=== PATIENT | male | born 2000 | race Caucasian/White ===

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

== ENCOUNTER 2020-07-11 16:15 | Outpatient (CLI) | payer BC | END 2020-07-11 16:16 | disposition home or self-care (01) | LOC: COV 16:15 | PROVIDERS: ATTEND Family Medicine | DX: Z20.828 Contact with and (suspected) exposure to other viral communicable diseases (principal) ==

== ENCOUNTER 2020-07-19 16:43 | Outpatient (CLI) | payer BC | END 2020-07-19 16:44 | disposition home or self-care (01) | LOC: COV 16:43 | PROVIDERS: ATTEND Family Medicine | DX: Z20.828 Contact with and (suspected) exposure to other viral communicable diseases (principal) ==

== ENCOUNTER 2020-10-19 08:00 | Outpatient (CLI) | payer BC | END 2020-10-19 23:59 | disposition home or self-care (01) | LOC: LAB.N 08:00 | PROVIDERS: ATTEND Physician Assistant Medical | DX: J02.9 Acute pharyngitis, unspecified (principal); Z20.822 Contact with and (suspected) exposure to COVID-19 | CPT/HCPCS: 36415; 86308; 87275; 87276 ==

== ENCOUNTER 2021-02-19 11:45 | Outpatient (CLI) | payer OTHER, BC | END 2021-02-19 11:46 | disposition critical access hospital (66) | LOC: EMS 11:45 | DX: S00.81XA Abrasion of other part of head, initial encounter (principal); S70.02XA Contusion of left hip, initial encounter; W17.89XA Other fall from one level to another, initial encounter; Y93.89 Activity, other specified | CPT/HCPCS: A0425; A0427 ==

== ENCOUNTER 2021-02-19 12:01 | Inpatient (IN) | payer OTHER, BC ==
[2021-02-19] MEDS ORDERED: IOVERSOL 320 100 ML VIAL IVP ONE (12:29)
[2021-02-19 12:42] LABS: BASOPHILS % (AUTO) 0.2 %; EOSINOPHILS # (AUTO) 0.5 10^3/uL (0.0-0.7); EOSINOPHILS % (AUTO) 2.7 %; HCT - HEMATOCRIT 44.8 % (42.0-52.0); HGB - HEMOGLOBIN 15.4 g/dL (14.0-18.0); LYMPHOCYTES # (AUTO) 0.8 10^3/uL (1.5-3.5); LYMPHOCYTES % (AUTO) 4.4 %; MEAN CORPUSCULAR HEMOGLOBIN 32.4 pg (27.0-31.0); MEAN CORPUSCULAR HGB CONC 34.4 g/dL (32.0-36.0); MEAN CORPUSCULAR VOLUME 94.3 fL (80.0-94.0); MEAN PLATELET VOLUME 10.2 fL (7.4-11.4); MONOCYTES # (AUTO) 1.1 10^3/uL (0.0-1.0); MONOCYTES % (AUTO) 6.6 %; NEUTROPHILS # (AUTO) 14.4 10^3/uL (1.5-6.6); NEUTROPHILS % (AUTO) 85.2 %; PLT - PLATELET COUNT 170 10^3/uL (130-450); RED BLOOD COUNT 4.75 10^6/uL (4.70-6.10); RED CELL DISTRIBUTION WIDTH 12.4 % (12.0-15.0); WHITE BLOOD COUNT 16.9 x10^3/uL (4.8-10.8)
--- NOTE | 2021-02-19 12:50 | XRAY Report ---
PROCEDURE: Wrist 4 View LT INDICATIONS: fall, wrist pain TECHNIQUE: 4 views of the wrist were acquired. COMPARISON: None FINDINGS: Bones: No fractures or dislocations. No suspicious bony lesions. Scaphoid view: No scaphoid fractures are seen. Soft tissues: No suspicious soft tissue calcifications. IMPRESSION: No displaced fractures are seen on these plain films. If there is snuffbox tenderness (or other clinical concern for a fracture not seen on these images) p lease consider a dedicated CT study or a short-term follow-up plain film series, following splinting. Reviewed by: Mahin Horner MD on 02/19/2021 11:49 AM SHANNON Approved by: Mahin Horner MD on 02/19/2021 11:49 AM SHANNON Station ID: [id number]
[2021-02-19 12:54] LABS: ACETAMINOPHEN < 10 ug/mL (10-30); ALBUMIN 4.8 g/dL (3.2-5.5); ALBUMIN/GLOBULIN RATIO 1.8 (1.0-2.2); ALKALINE PHOSPHATASE 89 IU/L (42-121); ALT ALANINE AMINOTRANSFERASE 91 IU/L (10-60); AST ASPARTATE AMINOTRANSFERASE 169 IU/L (10-42); BILIRUBIN,TOTAL 1.1 mg/dL (0.2-1.0); BUN - BLOOD UREA NITROGEN 18 mg/dL (6-20); CALCIUM 8.8 mg/dL (8.5-10.3); CARBON DIOXIDE - CO2 19 mmol/L (21-32); CHLORIDE 105 mmol/L (101-111); ETOH - ETHANOL 107.3 mg/dL; GFR - MDRD 93 (>89); GLUCOSE 129 mg/dL (70-100); LIPASE 29 U/L (22-51); POTASSIUM 4.2 mmol/L (3.5-5.0); SALICYLATE < 6.0 mg/dL; SODIUM 137 mmol/L (135-145); TOTAL PROTEIN 7.5 g/dL (6.7-8.2)
[2021-02-19] MEDS ORDERED: MORPHINE 2 MG/ML CARPUJECT IVP STA (12:56)
[2021-02-19] MEDS ORDERED: SODIUM CHLORIDE 0.9% 1,000 ML IV STA (12:56)
[2021-02-19] MEDS ORDERED: ONDANSETRON 4 MG/2 ML VIAL IVP STA (12:57)
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
[2021-02-19] MEDS: IOVERSOL 320 100 ML VIAL IVP ONE (13:52)
--- NOTE | 2021-02-19 13:57 | CT Report ---
PROCEDURE: HEAD WO INDICATIONS: fall, head injury, intoxicated TECHNIQUE: Noncontrast 4.5 mm thick angled axial sections acquired from the foramen magnum to the vertex. For r adiation dose reduction, the following was used: automated exposure control, adjustment of mA and/or kV according to patient size. COMPARISON: Correlation is made with the overlapping portions of sinus CT, 12/31/2014 FINDINGS: Image quality: Motion artifact is noted. CSF spaces: Basal cisterns are patent. No extra-axial fluid collections. Ventricles are normal in size and shape. Brain: No midline shift. No intracranial masses or hemorrhage. Olm[place]-white matter interface is norm al. Skull and face: Calvarium and visualized facial bones are intact, without suspicious lesions. Sinuses: Visualized sinuses and mastoids are clear. IMPRESSION: Limited study demonstrating no findings of acute intracranial hemorrhage or other acute abnormality. Negative for displaced fracture. Reviewed by: Mahin Horner MD on 02/19/2021 12:55 PM SHANNON Approved by: Mahin Horner MD on 02/19/2021 12:55 PM VTBESSY Station ID: [id number]
--- NOTE | 2021-02-19 14:02 | CT Report ---
PROCEDURE: CERVICAL SPINE WO INDICATIONS: fall, neck injury, intoxicated TECHNIQUE: Noncontrast 3 mm thick sections acquired from the skull base to the T4 level. Sagittal and coronal r eformats were then constructed. For radiation dose reduction, the following was used: automated exp osure control, adjustment of mA and/or kV according to patient size. COMPARISON: Correlation is made with the accompanying CT examinations. FINDINGS: Image quality: Excellent. Bones: No fractures or dislocations. Visualized superior ribs are intact. Soft tissues: Prevertebral soft tissues are normal in thickness. No paravertebral hematomas. No ap ical pneumothoraces. IMPRESSION: Negative for fracture. Reviewed by: Mahin Horner MD on 02/19/2021 1:01 PM SHANNON Approved by: Mahin Horner MD on 02/19/2021 1:01 PM SHANNON Station ID: [id number]
--- NOTE | 2021-02-19 14:03 | CT Report ---
PROCEDURE: CHEST W INDICATIONS: fall, L sided chest injury, intoxicated CONTRAST: IV CONTRAST: Optiray 320 ml: 100 PO CONTRAST: *NO PO CONTRAST TECHNIQUE: After the administration of intravenous contrast, 5 mm thick sections acquired from the pulmonary api cara to the posterior costophrenic angles. 7 mm thick coronal MIP reformats were acquired. For radia tion dose reduction, the following was used: automated exposure control, adjustment of mA and/or kV according to patient size. COMPARISON: Correlation is made with the accompanying CT examinations, 02/19/2021. FINDINGS: Image quality: Excellent. Lungs and pleura: No acute air space opacities. No pleural effusions or pneumothorax. Central and peripheral airways are patent and normal in caliber. Mediastinum: Heart size is normal. No pericardial effusion. No mediastinal or hilar adenopathy by size criteria. Thoracic aorta and central pulmonary arteries are normal in size. Esophagus is mahendra l in caliber. No hiatal hernia. Bones and chest wall: In this patient with this given history, scrutiny is given to the left-sided r ibs. No rib fractures are seen on either side. No suspicious bony lesions. No vertebral body mai maddy fractures. No axillary or supraclavicular adenopathy by size criteria. The thyroid is normal i n size and there are no incidental findings. Abdomen: Visualized upper abdominal solid organs appear normal. Upper abdominal bowel loops are nor mal in caliber. IMPRESSION: Negative for rib fracture. No pneumothorax. Reviewed by: Mahin Horner MD on 02/19/2021 1:02 PM SHANNON Approved by: Mahin Horner MD on 02/19/2021 1:02 PM SHANNON Station ID: [id number]
--- NOTE | 2021-02-19 14:12 | CT Report ---
PROCEDURE: Abdomen/Pelvis W INDICATIONS: fall, L sided flank and pelvis injury, intoxicated CONTRAST: IV CONTRAST: Optiray 320 ml: 100 PO CONTRAST: *NO PO CONTRAST TECHNIQUE: After the administration of IV contrast, 5 mm thick sections acquired from the diaphragms to the symp hysis. 5 mm thick coronal and sagittal reformats were acquired. For radiation dose reduction, the f ollowing was used: automated exposure control, adjustment of mA and/or kV according to patient size. In this patient has transitional spinal reconstructions were performed in all 3 planes. COMPARISON: Correlation is made with the accompanying CT examinations, 02/19/2021. FINDINGS: Image quality: Excellent. ABDOMEN: Lung bases: Lung bases are clear. Heart size is normal. Solid organs: Liver and spleen are normal in size and enhancement. Gallbladder wall does not appear thickened. Biliary system is non dilated. Pancreas enhances normally. No adrenal nodules. The left kidney is abnormal, with mild patchy areas of poor enhancement posteriorly and mild perineph elizabeth hematoma posteriorly and inferiorly. The left kidney largely enhances within normal limits. The k idneys demonstrate normal size. No hydronephrosis is seen on either side. Peritoneum and bowel: Bowel loops demonstrate normal wall thickness and caliber. No free fluid or a ir. A normal appendix is incidentally noted. Nodes and vessels: No retroperitoneal or mesenteric adenopathy by size criteria. Aorta and inferior vena cava are normal in size. Miscellaneous: No ventral hernias. PELVIS: Genitourinary: Bladder wall thickness is normal. Miscellaneous: No inguinal hernias or adenopathy. Soft tissue hematoma can be seen involving the le ft lateral gluteal region. Bones: The left posterolateral 10th rib demonstrates a chronic appearing fracture, with callus forma tion. A mildly displaced acute left posterior lateral 11th rib fracture can be seen, as on series 3 i mage 41 and on series 6 image 34. Mildly displaced fractures can be seen involving the left iliac bone, yet without specific involvemen t of the acetabulum. The sacroiliac joint also does not appear to be involved. No suspicious bony lesions. No vertebral body compression fractures. IMPRESSION: Left kidney injury, with mild perinephric hematoma. The left kidney is considered to hav e a grade 2/3 injury. There is an acute appearing overlying left 11th rib seen posterior laterally. A chronic appearing 10th rib fracture is also seen, with partial healing callus. There is a comminuted fractures involving the left iliac wing. The acetabulum and the sacroiliac join t do not appear to be involved. Overlying soft tissue hematoma is seen. No vertebral fracture is detected. Reviewed by: Mahin Horner MD on 02/19/2021 1:11 PM SHANNON Approved by: Mahin Horner MD on 02/19/2021 1:11 PM SHANNON Station ID: [id number]
[2021-02-19] MEDS ORDERED: HYDROmorphone 1 MG/ML CARPUJECT IVP STA (14:33)
[2021-02-19] MEDS ORDERED: SODIUM CHLORIDE FLUSH 0.9% 10 ML SYRINGE IVP PRN (15:06)
[2021-02-19] MEDS ORDERED: ALBUTEROL NEB 2.5 MG/3 ML INH PRN (15:06)
[2021-02-19] MEDS ORDERED: METOCLOPRAMIDE 10 MG/2 ML VIAL IVP PRN (15:06)
[2021-02-19] MEDS ORDERED: ONDANSETRON 4 MG/2 ML VIAL IVP PRN (15:06)
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
[2021-02-19] MEDS ORDERED: IPRATROPIUM 0.2 MG/ML NEB INH PRN (15:17)
--- OUTSIDE RECORDS SUMMARY | 2021-02-19 15:20 | EXTERNAL MEDICAL SUMMARY RPT | Continuity of Care Document ---
:2000 Demographics Phone Unavailable Preferred Language Unknown Marital Status Unknown Mandaeism Affiliation Unknown Race Unknown Ethnic Group Unknown Author Organization [facility] Address [address] [place] [address] Phone Allergies Encounters Medications Problems Results
[2021-02-19 15:21] LABS: HCT - HEMATOCRIT 43.1 % (42.0-52.0); HGB - HEMOGLOBIN 15.1 g/dL (14.0-18.0)
[2021-02-19 15:41] LABS: B. PARAPERTUSSIS- RESP PCR PAN NOT DETECTED; B. PERTUSSIS- RESP PCR PANEL NOT DETECTED; C. PNEUMONIAE- RESP PCR PANEL NOT DETECTED; CORONAVIRUS 229E-RESP PCR NOT DETECTED; CORONAVIRUS HKU1-RESP PCR NOT DETECTED; CORONAVIRUS NL63-RESP PCR NOT DETECTED; CORONAVIRUS OC43-RESP PCR NOT DETECTED; HUMAN METAPNEUMOVIRUS NOT DETECTED; INFLUENZA A- RESP PCR PANEL NOT DETECTED; INFLUENZA B - RESP PCR PANEL NOT DETECTED; M. PNEUMONIAE- RESP PCR PANEL NOT DETECTED; PARAINFLUENZA VIRUS 1 NOT DETECTED; PARAINFLUENZA VIRUS 2 NOT DETECTED; PARAINFLUENZA VIRUS 3 NOT DETECTED; PARAINFLUENZA VIRUS 4 NOT DETECTED; RHINOVIRUS/ENTEROVIRUS NOT DETECTED; RSV- RESP PCR PANEL NOT DETECTED; SARS-CoV-2 -RESP PCR PANEL NOT DETECTED
[2021-02-19] MEDS: SODIUM CHLORIDE FLUSH 0.9% 10 ML SYRINGE IVP SCH ×2 (16:51→23:56)
[2021-02-19] MEDS: ACETAMINOPHEN 1,000 MG/100 ML 100 ML IV PRN (16:51)
[2021-02-19] MEDS: D5NS W/20 MEQ KCL 1,000 ML IV SCH ×2 (16:51→23:55)
[2021-02-19] MEDS ORDERED: BACITRACIN ZINC OINT 1 PACKET TOP PRN (16:58)
[2021-02-19] MEDS: HYDROmorphone 0.5 MG/0.5 ML SYRINGE IVP PRN ×2 (18:12→21:31)
[2021-02-19] MEDS: methocarbamoL 500 MG TABLET PO SCH ×2 (18:12→23:57)
[2021-02-19 18:14] LABS: MUDS CUTOFF CONCENTRATIONS CUTOFF CONC BELOW:
[2021-02-19 18:19] LABS: BILIRUBIN,URINE NEGATIVE (NEGATIVE); GLUCOSE, URINE (UA) NEGATIVE (NEGATIVE); KETONES,URINE (UA) TRACE mg/dL (NEGATIVE); LEUKOCYTE ESTERASE, URINE NEGATIVE (NEGATIVE); NITRITE,URINE NEGATIVE (NEGATIVE); OCCULT BLOOD,URINE LARGE (NEGATIVE); PROTEIN,URINE 100 mg/dL (NEGATIVE); UROBILINOGEN,URINE 0.2 (NORMAL) E.U./dL (NORMAL)
[2021-02-19 18:29] LABS: CLARITY,URINE CLEAR (CLEAR); COCAINE SCREEN URINE POSITIVE (NEGATIVE); THC CANNABINOID SCREEN, URINE POSITIVE (NEGATIVE)
[2021-02-19 18:30] LABS: AMPHETAMINE SCREEN,URINE NEGATIVE (NEGATIVE); BARBITURATE SCREEN,UR NEGATIVE (NEGATIVE); BENZODIAZEPINES SCREEN, URINE NEGATIVE (NEGATIVE); METHADONE SCREEN, URINE NEGATIVE (NEGATIVE); METHAMPHETAMINES SCREEN, URINE NEGATIVE (NEGATIVE); OPIATE SCREEN, URINE POSITIVE (NEGATIVE); OXYCODONE SCREEN, URINE NEGATIVE (NEGATIVE); PROPOXYPHENE SCREEN, URINE NEGATIVE (NEGATIVE); TRICYCLIC ANTIDEPRESSANT,URINE NEGATIVE (NEGATIVE)
[2021-02-19 18:31] LABS: BASOPHILS % (AUTO) 0.1 %; HCT - HEMATOCRIT 40.9 % (42.0-52.0); HGB - HEMOGLOBIN 14.3 g/dL (14.0-18.0); LYMPHOCYTES # (AUTO) 1.3 10^3/uL (1.5-3.5); LYMPHOCYTES % (AUTO) 10.8 %; MEAN CORPUSCULAR HEMOGLOBIN 32.4 pg (27.0-31.0); MEAN CORPUSCULAR VOLUME 92.7 fL (80.0-94.0); MEAN PLATELET VOLUME 10.1 fL (7.4-11.4); MONOCYTES # (AUTO) 0.9 10^3/uL (0.0-1.0); MONOCYTES % (AUTO) 7.1 %; NEUTROPHILS # (AUTO) 9.9 10^3/uL (1.5-6.6); NEUTROPHILS % (AUTO) 81.5 %; PLT - PLATELET COUNT 151 10^3/uL (130-450); RED BLOOD COUNT 4.41 10^6/uL (4.70-6.10); RED CELL DISTRIBUTION WIDTH 12.4 % (12.0-15.0); WHITE BLOOD COUNT 12.1 x10^3/uL (4.8-10.8)
[2021-02-19 18:33] LABS: BACTERIA,URINE Few /HPF (None Seen); RBC,URINE 0-5 /HPF (0-5); SQUAMOUS EPITHELIAL CELL,UR FEW Squamous (<= Few); WBC,URINE 0-3 /HPF (0-3)
[2021-02-19 18:36] LABS: INR 1.2 (0.8-1.2); PT - PROTHROMBIN TIME 13.4 secs (9.9-12.6)
[2021-02-19 18:47] LABS: ALBUMIN 4.6 g/dL (3.2-5.5); ALBUMIN/GLOBULIN RATIO 2.1 (1.0-2.2); BILIRUBIN,TOTAL 1.4 mg/dL (0.2-1.0); CALCIUM 8.5 mg/dL (8.5-10.3); TOTAL PROTEIN 6.8 g/dL (6.7-8.2)
[2021-02-19] MEDS ORDERED: IPRATROPIUM 0.2 MG/ML NEB INH SCH (19:00)
[2021-02-19 20:55] LABS: HCT - HEMATOCRIT 39.6 % (42.0-52.0); HGB - HEMOGLOBIN 13.8 g/dL (14.0-18.0)
[2021-02-20] MEDS: ACETAMINOPHEN 1,000 MG/100 ML 100 ML IV PRN ×2 (01:34→16:12)
[2021-02-20 03:17] LABS: BASOPHILS % (AUTO) 0.1 %; EOSINOPHILS % (AUTO) 0.2 %; HCT - HEMATOCRIT 34.5 % (42.0-52.0); HGB - HEMOGLOBIN 12.1 g/dL (14.0-18.0); LYMPHOCYTES # (AUTO) 1.1 10^3/uL (1.5-3.5); LYMPHOCYTES % (AUTO) 12.7 %; MEAN CORPUSCULAR HEMOGLOBIN 32.8 pg (27.0-31.0); MEAN CORPUSCULAR HGB CONC 35.1 g/dL (32.0-36.0); MEAN CORPUSCULAR VOLUME 93.5 fL (80.0-94.0); MEAN PLATELET VOLUME 10.3 fL (7.4-11.4); MONOCYTES # (AUTO) 0.6 10^3/uL (0.0-1.0); MONOCYTES % (AUTO) 6.1 %; NEUTROPHILS # (AUTO) 7.3 10^3/uL (1.5-6.6); NEUTROPHILS % (AUTO) 80.6 %; PLT - PLATELET COUNT 116 10^3/uL (130-450); RED BLOOD COUNT 3.69 10^6/uL (4.70-6.10); RED CELL DISTRIBUTION WIDTH 12.2 % (12.0-15.0)
[2021-02-20 03:29] LABS: ALBUMIN 3.6 g/dL (3.2-5.5); ALBUMIN/GLOBULIN RATIO 1.7 (1.0-2.2); CREATININE 0.9 mg/dL (0.6-1.2); TOTAL PROTEIN 5.7 g/dL (6.7-8.2)
[2021-02-20] MEDS: HYDROmorphone 0.5 MG/0.5 ML SYRINGE IVP PRN ×6 (05:43→19:17)
[2021-02-20] MEDS: methocarbamoL 500 MG TABLET PO SCH ×4 (05:43→23:59)
[2021-02-20] MEDS: PANTOPRAZOLE 40 MG VIAL IVP SCH (07:00)
[2021-02-20] MEDS: SODIUM CHLORIDE FLUSH 0.9% 10 ML SYRINGE IVP SCH ×2 (07:00→17:03)
[2021-02-20] MEDS: D5NS W/20 MEQ KCL 1,000 ML IV SCH (07:50)
[2021-02-20] MEDS: PRENATAL VITAMIN TABLET PO SCH (09:00)
[2021-02-20] MEDS ORDERED: MULTIVITAMIN 10 ML, THIAMINE INJ 100 MG, FOLIC ACID INJ 1 MG in SODIUM CHLORIDE 0.9% 1,... IV SCH (09:00)
[2021-02-20] MEDS: THIAMINE 100 MG TABLET PO SCH (09:01)
[2021-02-20 09:04] LABS: HCT - HEMATOCRIT 35.3 % (42.0-52.0); HGB - HEMOGLOBIN 11.7 g/dL (14.0-18.0)
[2021-02-20] MEDS: LORazepam 2 MG/ML VIAL IVP PRN ×2 (10:18→12:18)
[2021-02-20] MEDS ORDERED: D5NS W/20 MEQ KCL 1,000 ML IV SCH (11:10)
[2021-02-20] MEDS ORDERED: IOVERSOL 320 100 ML VIAL IVP ONE (11:17)
[2021-02-20] MEDS ORDERED: IOPAMIDOL-300 50 ML VIAL ONE (12:13)
--- NOTE | 2021-02-20 13:22 | PHARMACY PROGRESS NOTE ---
- Best Possible Medication History Admit Date and Time: 02/19/21 1506 Processed by: Nursing Medication History completed: Yes As the person ultimately responsible for medication therapy, providers are able to order a medication from an existing home medication list in [facility] via the "Reconcile Routine" prior to Confirmation of that medication by youth support worker. Such practice is discouraged except when the physician, in their clinical judgment, deems that a medical need exists for a medication without regard to previous use.
--- NOTE | 2021-02-20 13:51 | CT Report ---
PROCEDURE: Abdomen/Pelvis W INDICATIONS: evaluate for propagation of kidney laceration CONTRAST: IV CONTRAST: Optiray 320 ml: 100 PO CONTRAST: Isovue 300 ml50 TECHNIQUE: After the administration of 100 mL contrast, 5 mm thick sections acquired from the diaphragms to the symphysis. 5 mm thick coronal and sagittal reformats were acquired. For radiation dose reduction, t following was used: automated exposure control, adjustment of mA and/or kV according to patient s ize. COMPARISON: 03/21/2021 FINDINGS: Image quality: Excellent. ABDOMEN: Lung bases: There is bibasilar atelectasis, otherwise the lung bases are clear. Heart size is normal . Solid organs: Liver and spleen are normal in size and enhancement. Gallbladder is normal. Biliary system is non dilated. Pancreas enhances normally. No adrenal nodules. The left kidney has an uncha nged appearance compared to the prior study yesterday. A mild perinephric hematoma posteriorly and in feriorly is minimally larger compared to the prior study yesterday. Peritoneum and bowel: Bowel loops demonstrate normal wall thickness and caliber. No free fluid or a ir. Nodes and vessels: No retroperitoneal or mesenteric adenopathy by size criteria. Aorta and inferior vena cava are normal in size. Miscellaneous: No ventral hernias. PELVIS: Genitourinary: Bladder wall thickness is normal. Miscellaneous: No inguinal hernias or adenopathy. Bones: A remote left 10th rib fracture and an acute lateral left 11th rib fracture is unchanged. The re is a comminuted nondisplaced fracture of the left iliac wing. Possible nondisplaced fractures of t he superior and inferior rami. No vertebral body compression fractures. IMPRESSION: 1. Grade 2/3 left renal injury, mild perinephric hematoma is minimally larger compared to yesterday. 2. Left rib fractures. 3. Pelvic fractures as above. Reviewed by: Kain Lance on 02/20/2021 1:50 PM PDT Approved by: Kain Lance on 02/20/2021 1:50 PM PDT Station ID: [id number]
--- NOTE | 2021-02-20 15:04 | PROVIDER PROGRESS NOTE ---
Progress Note Subjective Hospital day 2. Has yet to be out of bed. Continues to void by López. Status post CT scan of abdomen pelvis and follow-up. Objective General Appearance: positive: No acute distress Eyes Bilateral: positive: Normal inspection ENT: positive: ENT inspection nml Neck: positive: Nml inspection Respiratory: positive: Chest non-tender, No respiratory distress, Breath sounds nml. negative: Wheezes, Rales, Rhonchi Cardiovascular: positive: Regular rate & rhythm Abdomen: positive: No distention, Other. negative: Guarding, Rebound Extremities: positive: Non-tender, Full ROM, Nml appearance Neurologic/Psychiatric: positive: Oriented x3, CN's nml (2-12) Impression/Plan 21-year-old male hospital day 2 for traumatic fall with left iliac crest fracture, left kidney laceration grade 2/3, left rib fractures x1 with significant pain and history of alcohol abuse however no signs of withdrawal at this time. Has been yet to ambulate or get out of bed. López catheter remains in place. Continues with physical therapy. Repeat imaging with no significant expansion of hematoma. H&H is remained stable (1) GI - IVF, bowel regimen, advance diet as tolerated. GI ppx. Anticipate narcotic ileus. Opiate sparring analgesia. (2) SURGERY -no acute surgical intervention merited at this time. (3) Renal/Lytes - continue IVF. Renal indices within normal limits. (4) Respiratory - O2 as necessary. Continue IS. (5) Heme - Will continue with DVT ppx. H/H stable. (6) Cardiovascular - HD acceptable. (7) Neuro - Opiate sparring analgesia. Antispasmodics with Robaxin. Neuropathic agents. (8) Immune/Infectious Disease - no indication for antibiotics.
[2021-02-20 15:34] LABS: HCT - HEMATOCRIT 35.1 % (42.0-52.0); HGB - HEMOGLOBIN 12.2 g/dL (14.0-18.0)
[2021-02-20] MEDS ORDERED: IOPAMIDOL-300 50 ML VIAL PO ONE (16:56)
[2021-02-20] MEDS: IOVERSOL 320 100 ML VIAL IVP ONE (16:56)
[2021-02-20 21:20] LABS: HCT - HEMATOCRIT 37.9 % (42.0-52.0); HGB - HEMOGLOBIN 12.9 g/dL (14.0-18.0)
[2021-02-20] MEDS: oxyCODONE 5 MG TABLET PO PRN (23:59)
[2021-02-21 04:46] LABS: BASOPHILS % (AUTO) 0.2 %; EOSINOPHILS # (AUTO) 0.1 10^3/uL (0.0-0.7); EOSINOPHILS % (AUTO) 1.2 %; HCT - HEMATOCRIT 34.8 % (42.0-52.0); LYMPHOCYTES # (AUTO) 1.1 10^3/uL (1.5-3.5); LYMPHOCYTES % (AUTO) 11.5 %; MEAN CORPUSCULAR HEMOGLOBIN 32.8 pg (27.0-31.0); MEAN CORPUSCULAR HGB CONC 34.5 g/dL (32.0-36.0); MEAN CORPUSCULAR VOLUME 95.1 fL (80.0-94.0); MEAN PLATELET VOLUME 10.1 fL (7.4-11.4); MONOCYTES # (AUTO) 0.5 10^3/uL (0.0-1.0); MONOCYTES % (AUTO) 5.2 %; NEUTROPHILS # (AUTO) 7.8 10^3/uL (1.5-6.6); NEUTROPHILS % (AUTO) 81.3 %; PLT - PLATELET COUNT 110 10^3/uL (130-450); RED BLOOD COUNT 3.66 10^6/uL (4.70-6.10); WHITE BLOOD COUNT 9.7 x10^3/uL (4.8-10.8)
[2021-02-21 04:57] LABS: ALBUMIN 3.5 g/dL (3.2-5.5); ALBUMIN/GLOBULIN RATIO 1.4 (1.0-2.2); BILIRUBIN,TOTAL 1.8 mg/dL (0.2-1.0); CALCIUM 8.3 mg/dL (8.5-10.3); CREATININE 0.8 mg/dL (0.6-1.2); POTASSIUM 3.8 mmol/L (3.5-5.0)
[2021-02-21] MEDS: methocarbamoL 500 MG TABLET PO SCH ×3 (06:31→17:55)
[2021-02-21] MEDS: PANTOPRAZOLE 40 MG VIAL IVP SCH (06:32)
[2021-02-21] MEDS: oxyCODONE 5 MG TABLET PO PRN ×5 (06:32→22:24)
[2021-02-21] MEDS: DOCUSATE SODIUM 250 MG CAPSULE PO SCH (08:53)
[2021-02-21] MEDS: polyethylene glycoL 3350 17 GM PACKET PO SCH (08:53)
[2021-02-21] MEDS: THIAMINE 100 MG TABLET PO SCH (08:54)
[2021-02-21] MEDS: PRENATAL VITAMIN TABLET PO SCH (08:54)
[2021-02-21 09:29] LABS: HCT - HEMATOCRIT 34.7 % (42.0-52.0); HGB - HEMOGLOBIN 12.2 g/dL (14.0-18.0)
[2021-02-21] MEDS: SODIUM CHLORIDE FLUSH 0.9% 10 ML SYRINGE IVP SCH ×3 (10:33→17:56)
[2021-02-21] MEDS: ACETAMINOPHEN 1,000 MG/100 ML 100 ML IV PRN (10:35)
--- NOTE | 2021-02-21 14:17 | PROVIDER PROGRESS NOTE ---
Progress Note Subjective Hospital day 3. Positive out of bed with physical therapy. Positive stool. López catheter removed. Objective General Appearance: positive: No acute distress Eyes Bilateral: positive: Normal inspection ENT: positive: ENT inspection nml Neck: positive: Nml inspection Respiratory: positive: Chest non-tender, No respiratory distress, Breath sounds nml. negative: Wheezes, Rales, Rhonchi Cardiovascular: positive: Regular rate & rhythm Abdomen: positive: No distention, Other. negative: Guarding, Rebound Extremities: positive: Non-tender, Full ROM, Nml appearance Neurologic/Psychiatric: positive: Oriented x3, CN's nml (2-12) Impression/Plan 21-year-old male hospital day 3 for traumatic fall with left iliac crest fracture, left kidney laceration grade 2/3, left rib fractures x1 with significant pain and history of alcohol abuse however no signs of withdrawal at this time. Has begun to work with physical therapy. López catheter removed and pending trial of void.. Repeat imaging with no significant expansion of hematoma. H&H is remained stable (1) GI - IVF, bowel regimen, advance diet as tolerated. GI ppx. Anticipate narcotic ileus. Opiate sparring analgesia. (2) SURGERY -no acute surgical intervention merited at this time. (3) Renal/Lytes - continue IVF. Renal indices within normal limits. (4) Respiratory - O2 as necessary. Continue IS. (5) Heme - Will continue with DVT ppx. H/H stable. (6) Cardiovascular - HD acceptable. (7) Neuro - Opiate sparring analgesia. Antispasmodics with Robaxin. Neuropathic agents. (8) Immune/Infectious Disease - no indication for antibiotics. (9) PHYSICAL THERAPY - patient may benefit from outpatient physical therapy and or short-term inpatient stay.
[2021-02-21] MEDS: ACETAMINOPHEN 500 MG TABLET PO PRN (18:36)
[2021-02-22] MEDS: methocarbamoL 500 MG TABLET PO SCH ×4 (00:15→17:16)
[2021-02-22] MEDS: SODIUM CHLORIDE FLUSH 0.9% 10 ML SYRINGE IVP SCH ×3 (00:16→17:19)
[2021-02-22] MEDS: oxyCODONE 5 MG TABLET PO PRN ×5 (06:07→22:16)
[2021-02-22] MEDS: PANTOPRAZOLE 40 MG TABLET PO SCH (06:07)
[2021-02-22 06:15] LABS: BASOPHILS % (AUTO) 0.3 %; EOSINOPHILS # (AUTO) 0.1 10^3/uL (0.0-0.7); EOSINOPHILS % (AUTO) 1.9 %; HCT - HEMATOCRIT 34.7 % (42.0-52.0); HGB - HEMOGLOBIN 11.9 g/dL (14.0-18.0); LYMPHOCYTES # (AUTO) 1.2 10^3/uL (1.5-3.5); LYMPHOCYTES % (AUTO) 16.9 %; MEAN CORPUSCULAR HEMOGLOBIN 32.6 pg (27.0-31.0); MEAN CORPUSCULAR HGB CONC 34.3 g/dL (32.0-36.0); MEAN CORPUSCULAR VOLUME 95.1 fL (80.0-94.0); MEAN PLATELET VOLUME 10.1 fL (7.4-11.4); MONOCYTES # (AUTO) 0.3 10^3/uL (0.0-1.0); MONOCYTES % (AUTO) 4.4 %; NEUTROPHILS # (AUTO) 5.2 10^3/uL (1.5-6.6); NEUTROPHILS % (AUTO) 75.6 %; PLT - PLATELET COUNT 114 10^3/uL (130-450); RED BLOOD COUNT 3.65 10^6/uL (4.70-6.10); RED CELL DISTRIBUTION WIDTH 12.2 % (12.0-15.0); WHITE BLOOD COUNT 6.8 x10^3/uL (4.8-10.8)
[2021-02-22 06:25] LABS: ALBUMIN 3.4 g/dL (3.2-5.5); ALBUMIN/GLOBULIN RATIO 1.3 (1.0-2.2); BILIRUBIN,TOTAL 1.2 mg/dL (0.2-1.0); CALCIUM 8.5 mg/dL (8.5-10.3); CREATININE 0.7 mg/dL (0.6-1.2); POTASSIUM 3.9 mmol/L (3.5-5.0); TOTAL PROTEIN 6.1 g/dL (6.7-8.2)
[2021-02-22] MEDS: PRENATAL VITAMIN TABLET PO SCH (08:41)
[2021-02-22] MEDS: polyethylene glycoL 3350 17 GM PACKET PO SCH (08:41)
[2021-02-22] MEDS: THIAMINE 100 MG TABLET PO SCH (08:41)
[2021-02-22] MEDS: DOCUSATE SODIUM 250 MG CAPSULE PO SCH (08:41)
[2021-02-22] MEDS: ACETAMINOPHEN 500 MG TABLET PO PRN ×2 (10:30→17:17)
[2021-02-22] MEDS: HYDROmorphone 0.5 MG/0.5 ML SYRINGE IVP PRN (12:37)
--- NOTE | 2021-02-22 18:27 | PROVIDER PROGRESS NOTE ---
Subjective - Prog Note Date Prog Note Date: 02/22/21 - Subjective Pt reports feeling: Improved Subjective: little appetite however denies abdominal pain and nausea. denies extremity injury. Objective - Vital Signs/Intake & Output Reviewed Vital Signs: Yes Vital Signs: Vital Signs x48h Temp Pulse Pulse Resp BP Pulse Ox 02/22/21 15:57 37.0 C 90 18 122/67 96 02/22/21 14:14 36.7 C 92 16 99 02/22/21 12:39 36.7 C 92 16 110/57 L 99 Intake & Output: Intake & Output 02/19/21 02/20/21 02/21/21 02/22/21 23:59 23:59 23:59 23:59 Intake Total 2013.333 3051.783 890 360 Output Total 800 2275 2275 1275 Balance 1213.333 776.783 -1385 -915 - Objective General Appearance: positive: No acute distress, Alert Eyes Bilateral: positive: PERRL, EOMI Respiratory: positive: No respiratory distress Abdomen: positive: Non-tender, No distention Skin: positive: Other (ecchymosis and abraisions present without infection) Neurologic/Psychiatric: positive: Oriented x3 - Lab Results Fish Bones: 02/22/21 06:09 02/22/21 06:09 Other Labs: Lab Results x24hrs 02/22/21 02/22/21 Range/Units 06:09 06:09 WBC 6.8 (4.8-10.8) x10^3/uL RBC 3.65 L (4.70-6.10) 10^6/uL Hgb 11.9 L (14.0-18.0) g/dL Hct 34.7 L (42.0-52.0) % MCV 95.1 H (80.0-94.0) fL MCH 32.6 H (27.0-31.0) pg MCHC 34.3 (32.0-36.0) g/dL RDW 12.2 (12.0-15.0) % Plt Count 114 L (130-450) 10^3/uL MPV 10.1 (7.4-11.4) fL Neut # (Auto) 5.2 (1.5-6.6) 10^3/uL Lymph # (Auto) 1.2 L (1.5-3.5) 10^3/uL [place] # (Auto) 0.3 (0.0-1.0) 10^3/uL Eos # (Auto) 0.1 (0.0-0.7) 10^3/uL Baso # (Auto) 0.0 (0.0-0.1) 10^3/uL Absolute Nucleated RBC 0.00 x10^3/uL Nucleated RBC % 0.0 /100WBC Sodium 134 L (135-145) mmol/L Potassium 3.9 (3.5-5.0) mmol/L Chloride 99 L (101-111) mmol/L Carbon Dioxide 27 (21-32) mmol/L Anion Gap 8.0 (6-13) BUN 11 (6-20) mg/dL Creatinine 0.7 (0.6-1.2) mg/dL Estimated GFR (MDRD) 141 (>89) Glucose 102 H (70-100) mg/dL Calcium 8.5 (8.5-10.3) mg/dL Total Bilirubin 1.2 H (0.2-1.0) mg/dL AST 90 H (10-42) IU/L ALT 60 (10-60) IU/L Alkaline Phosphatase 56 (42-121) IU/L Total Protein 6.1 L (6.7-8.2) g/dL Albumin 3.4 (3.2-5.5) g/dL Globulin 2.7 (2.1-4.2) g/dL Albumin/Globulin Ratio 1.3 (1.0-2.2) - Diagnostic Imaging Diagnostic Imaging Results: positive: Final report reviewed Assessment/Plan - Problem List (1) Fracture of iliac crest Impression: daily improvement continue present care d/c planning Qualifiers: Encounter type: initial encounter Fracture type: closed Laterality: left Qualified Code(s): S32.302A - Unspecified fracture of left ilium, initial encounter for closed fracture
[2021-02-23] MEDS: SODIUM CHLORIDE FLUSH 0.9% 10 ML SYRINGE IVP SCH ×2 (00:29→08:05)
[2021-02-23] MEDS: methocarbamoL 500 MG TABLET PO SCH ×3 (00:29→11:36)
[2021-02-23] MEDS: ACETAMINOPHEN 500 MG TABLET PO PRN ×3 (00:29→11:36)
[2021-02-23] MEDS: oxyCODONE 5 MG TABLET PO PRN ×4 (02:18→16:00)
[2021-02-23 05:38] LABS: BASOPHILS % (AUTO) 0.3 %; EOSINOPHILS # (AUTO) 0.1 10^3/uL (0.0-0.7); EOSINOPHILS % (AUTO) 2.2 %; HCT - HEMATOCRIT 33.5 % (42.0-52.0); HGB - HEMOGLOBIN 11.4 g/dL (14.0-18.0); LYMPHOCYTES # (AUTO) 1.7 10^3/uL (1.5-3.5); LYMPHOCYTES % (AUTO) 29.1 %; MEAN CORPUSCULAR HEMOGLOBIN 32.1 pg (27.0-31.0); MEAN CORPUSCULAR VOLUME 94.4 fL (80.0-94.0); MEAN PLATELET VOLUME 9.9 fL (7.4-11.4); MONOCYTES # (AUTO) 0.3 10^3/uL (0.0-1.0); MONOCYTES % (AUTO) 5.1 %; NEUTROPHILS # (AUTO) 3.6 10^3/uL (1.5-6.6); NEUTROPHILS % (AUTO) 62.1 %; PLT - PLATELET COUNT 142 10^3/uL (130-450); RED BLOOD COUNT 3.55 10^6/uL (4.70-6.10); RED CELL DISTRIBUTION WIDTH 12.1 % (12.0-15.0); WHITE BLOOD COUNT 5.9 x10^3/uL (4.8-10.8)
[2021-02-23 05:43] LABS: ALBUMIN 3.2 g/dL (3.2-5.5); ALBUMIN/GLOBULIN RATIO 1.1 (1.0-2.2); BILIRUBIN,TOTAL 1.1 mg/dL (0.2-1.0); CALCIUM 8.9 mg/dL (8.5-10.3); CREATININE 0.8 mg/dL (0.6-1.2); POTASSIUM 3.7 mmol/L (3.5-5.0); TOTAL PROTEIN 6.1 g/dL (6.7-8.2)
[2021-02-23] MEDS: PANTOPRAZOLE 40 MG TABLET PO SCH (06:04)
[2021-02-23] MEDS: PRENATAL VITAMIN TABLET PO SCH (08:04)
[2021-02-23] MEDS: THIAMINE 100 MG TABLET PO SCH (08:04)
[2021-02-23] MEDS: DOCUSATE SODIUM 250 MG CAPSULE PO SCH (08:04)
[2021-02-23] MEDS: polyethylene glycoL 3350 17 GM PACKET PO SCH (08:06)
[2021-02-23] MEDS ORDERED: TAMSULOSIN 0.4 MG CAPSULE PO SCH (09:00)
[2021-02-23] MEDS: HYDROmorphone 0.5 MG/0.5 ML SYRINGE IVP PRN ×2 (09:14→10:58)
--- NOTE | 2021-02-23 15:30 | Discharge Plan ---
Discharge Plan Problem Reviewed?: Yes Disposition: 06 Home Health Service Condition: Good Prescriptions: oxyCODONE [Roxicodone] 5 - 10 mg PO Q4HR PRN #36 tablet PRN Reason: Pain methocarbamoL [Robaxin] 500 mg PO Q6HR #50 tablet Docusate Sodium 250Mg Capsule [Colace 250Mg Capsule] 250 - 500 mg PO DAILY #60 cap Tamsulosin [Flomax] 0.4 mg PO DAILY #30 cap polyethylene glycoL 3350 [Miralax] 17 gm PO DAILY #30 packet Pantoprazole [Protonix] 40 mg PO QDAC #30 tablet Thiamine [Vitamin B-1] 100 mg PO DAILY #30 tablet Diet: Soft Activity Restrictions: Wt Bearing as Tolerated Shower Restrictions: No Driving Restrictions: Yes (No driving while taking narcotis) Assistance Devices: Walker Weight Bearing: as tolerated Plan of Treatment: 1. Follow-up with primary care within 1 to 2 weeks of discharge. 2. With regard to any loss of consciousness, call or return to ER through the change in sensorium/consciousness. 3. Continue with incentive spirometry and pain management as it relates to the rib fractures. 4. Any respiratory compromise proceed to the urgent care/ER and/or your primary care for instructions as a relates to shortness of breath or other symptoms. 5. Continue with López catheter secondary to urinary retention. Follow-up with outpatient urology. Plan of Treatment: DISCHARGE INSTRUCTIONS TEMPLATE: Call immediately or go to emergency room for any change in sensorium or fluctuations in consciousness. Use narcotics sparingly. Follow-up with orthopedics for any persistent upper extremity discomfort. Call for any shortness of breath or return to the emergency room for any worrisome symptoms as a relates to respiratory function. No heavy lifting, pushing, or pulling. Stairs are allowed, no strenuous/exertional activities. 5-10lbs weight carrying limit (i.e. gallon of milk) If provided, abdominal binder while out of bed and while ambulating. Call or proceed to clinic/ER for fevers, severe pain, nausea, vomiting, inability to pass flatus/stool, bleeding, wound redness/discharge, weakness, excessively loose stool/diarrhea, or for any other reasonably worrisome symptom or concern. Soft MECHNICAL diet, no raw vegetables, avoid high fiber foods. Colace 100mg by mouth twice to three times daily while taking narcotic pain medication. If no bowel movement in 24-48hr, may take 17g Miralax in 8oz water twice daily until bowel movement. May shower, no submersive bathing. No driving while taking narcotic pain medications. Follow up with primary care provider and/or medical subspecialist following discharge as well. Follow-Up Care: Home Health - RN, Home Health - PT, Home Health - OT No Smoking: If you smoke, Please STOP! Call for help.
--- NOTE | 2021-02-23 15:33 | DISCHARGE SUMMARY ---
"Discharge Summary Admit Date: 02/19/21 Discharge Date: 02/23/21 Discharging Provider: Jaymie Code Status: Attempt Resuscitation Condition at Discharge: Good Discharge Disposition: Home Health Service - DIAGNOSES Admission Diagnoses: 1. Alcohol use and abuse 2. Multitrauma 3. Left kidney laceration 4. Pelvic fracture 5. Cuts and abrasions 6. Rib fractures 7. Pain 8. Urinary retention Discharge Diagnoses with Status of Each Condition: 1. Alcohol use and abuse - Evaluated & Treated/Counseled 2. Multitrauma - Evaluated & Treated/Counseled 3. Left kidney laceration - Evaluated & Treated/Counseled 4. Pelvic fracture - Evaluated & Treated/Counseled 5. Cuts and abrasions - Evaluated & Treated/Counseled 6. Rib fractures - Evaluated & Treated/Counseled 7. Pain - Evaluated & Treated/Counseled 8. Urinary retention - Evaluated & Treated/Counseled - HPI History of Present Illness: 21-year-old male presenting for fall from truck. Patient was reportedly inebriated and does not recall having sustained a fall. Positive loss of consciousness. Patient was not nested to the event. He awoke with left sided abdominal and hip pain. He reportedly drinks excessively. He claims that he drinks daily. He cannot express how much specifically drank on the day of his injury. No significant past medical or surgical history. No significant family history. Notable past surgical history to include none. Patient denies change in bowel function, denies bleeding per rectum, and also denies reflux associated symptoms. Patient has yet to void and has significant suprapubic discomfort. Patient has patient has a extensive history of alcohol use and abuse. He admits to drinking excessively. No history of heart attack or stroke. Patient takes no systemic anticoagula tion. Trauma physical exam: Airway: Patient speaking without any respiratory distress, bilateral breath sounds auscultated across all lung rogers Breathing: Bilateral breath sounds auscultated across all lung rogers, imaging with no evidence of pneumothorax or hemothorax Circulation: Patient with bilateral peripheral IV access, IV crystalloids running as per protocol, hemodynamically acceptable Patient was evaluated across all extremities please see below and was appro priately exposed to afford such. 1. Head: PERRLA, EOMI, no cathleen orbital ecchymoses, ears with tympanic membranes intact no otorrhea, no rhinorrhea, cranial nerves II through XII intact grossly. 2. C-spine clearance: No tenderness to palpation on full range of motion: Full range of motion with no tenderness midline C-spine on flexion and extension Full range of motion with known tenderness midline C-spine on lateral rotation left and right 3. Chest as per above with equal breath sounds bilaterally left lower chest tenderness however no crepitus or other concerning features please see imaging below no splinting no respiratory distress. 4. S1-S2 regular rate rhythm 5. Abdomen soft nontender nondistended no rebound no guarding, FAST performed with no fluid noted in the splenorenal space, hepatorenal space, suprapubic space, or pericardial sac. Patient with left abdominal discomfort. 6. Patient moving all extremities however bilateral upper extremity discomfort. See dedicated films 7. GCS 15, alert awake and oriented x3 8. No focal sensorimotor deficits bilaterally, no spinal step-offs or tenderness along the thoracic, lumbar spines. 9. No genitourinary complaints or perianal complaints. 10. Integumentary system patient with right facial abrasions as well as left hand abrasions. - CONSULTS | PROCEDURES Consultations: NONE Procedures: NONE - HOSPITAL COURSE Hospital Course: 21-year-old male who presents for traumatic fall with grade 2 left kidney laceration no evidence of active extravasation. Patient was also left iliac crest fracture. Left 11th rib fracture. Patient with history of extensive alcohol use and abuse. He denies ever having experienced delirium tremens historically. Positive loss of consciousness. No other acute injuries. Given the renal laceration we will continue with serial H&H, Place López catheter secondary to urinary obstruction which could be a consequence of obstructing clot. We will likely repeat his CT abdomen pelvis to check for expansion of the hematoma in the next day or so. With regard to the patient's alcohol abuse we will continue with CIWA protocol. A great deal of time was spent discussing with the patient consideration for abstinence from alcohol. Multiple risks were expressed as a relates to hepatic function, gastrointestinal dysfunction amongst others. Pain management as a relates to the rib fracture, incentive spirometry and respiratory care. Admit to the floor. N.p.o. at the moment. Telemetry and serial exams. Please note that voice recognition software was used to transcribe this note and inadvertent errors might persist in spite of review and editing. I am obliged to you for your attention. I am thankful to you for allowing me to participate with you in this care of this patient. Head CT impression: 1. Limited study Gray. Demonstrating no findings of acute intracranial hemorrhage or other abnormality. Negative for displaced fracture CT C-spine impression: Negative for fracture CT chest impression: 1. Negative for rib fracture. 2. No pneumothorax CT abdomen pelvis impression: 1. Left kidney injury with mild perinephric hematoma. The left kidney is considered to have a grade 2 injury. 2. There is an acute appearing left 11th rib fracture 3. A chronic appearing 10th rib fracture 4. Comminuted fracture involving the left iliac wing. The acetabulum and sacroiliac joint did not appear to be involved. Overlying soft tissue hematoma is seen. 5. No vertebral fractures detected. Patient was admitted and followed serially with physical exams. Serial plain film x-rays showed no propagation of pulmonary complications, no effusions, no hemo or pneumothorax. Patient was maintained on nebulizers and oxygen therapy as well as incentive spirometry. With regard to patient's pain control this was managed with narcotics. Nonsteroidals were avoided secondary to the patient's kidney laceration. Serial CAT scan showed no worsening of traumatic injury. Or no delayed presentation of occult injury. Patient was advanced for diet without any complication after repeat imaging was without any exacerbation as a relates to presenting traumatic injuries. With regard to orthopedic injuries these were nonoperative. Patient was followed by physical therapy and Occupational Therapy. Secondary to the patient's significant pain he was ultimately maintained for inpatient status through hospital day #3 in hospital day #4 he was appropriate for discharge to home with home physical therapy. He had urinary retention and López catheter was placed and Flomax was started. On the day of discharge the patient was afebrile hemodynamically acceptable. Patient had no significant concerns on the day of discharge and had appropriate follow-up. - ALLERGIES Allergies/Adverse Reactions: Allergies Allergy/AdvReac Type Severity Reaction Status Date / Time nystatin Allergy Intermediate Rash Verified 11/30/16 16:41 - MEDICATIONS Home Medications: Ambulatory Orders Medication Instructions Recorded Confirmed Acetaminophen [Tylenol] 1,000 mg PO Q6H PRN tablet 02/23/21 Docusate Sodium 250Mg Capsule 250 - 500 mg PO DAILY #60 cap 02/23/21 [Colace 250Mg Capsule] Pantoprazole [Protonix] 40 mg PO QDAC #30 tablet 02/23/21 Tamsulosin [Flomax] 0.4 mg PO DAILY #30 cap 02/23/21 Thiamine [Vitamin B-1] 100 mg PO DAILY #30 tablet 02/23/21 methocarbamoL [Robaxin] 500 mg PO Q6HR #50 tablet 02/23/21 oxyCODONE [Roxicodone] 5 - 10 mg PO Q4HR PRN #36 tablet 02/23/21 polyethylene glycoL 3350 [Miralax] 17 gm PO DAILY #30 packet 02/23/21 Tramadol HCl [Ultram] 50 - 100 mg PO Q6H PRN #40 tablet 03/02/21 methocarbamoL [Robaxin] 500 mg PO Q6HR PRN #60 tablet 03/02/21 - PHYSICAL EXAM AT DISCHARGE Physical Exam Other/Comments: General Appearance: positive: No acute distress Eyes Bilateral: positive: Normal inspection ENT: positive: ENT inspection nml Neck: positive: Nml inspection Respiratory: positive: Chest left lower quadrant, No respiratory distress, Jeniffer ath sounds nml. negative: Wheezes, Rales, Rhonchi Cardiovascular: positive: Regular rate & rhythm Abdomen: positive: No distention, Other. negative: Guarding, Rebound Flank: Right lower quadrant without tenderness on palpation or percussion; left lower quadrant with positive tenderness however overall improved. Extremities: positive: Non-tender, Full ROM, Nml appearance Neurologic/Psychiatric: positive: Oriented x3, CN's nml (2-12) - LABS Result Diagrams: 02/23/21 04:36 02/23/21 04:36 - DIAGNOSTIC IMAGING Diagnostic Imaging Results: Final report reviewed - SEPSIS Current Stage of Sepsis: Ruled out - FOLLOW UP Follow Up: Follow up: 1. Follow-up with primary care within 1 to 2 weeks of discharge. 2. With regard to any loss of consciousness, call or return to ER through the change in sensorium/consciousness. 3. Continue with incentive spirometry and pain management as it relates to the rib fractures. 4. Any respiratory compromise proceed to the urgent care/ER and/or your primary care for instructions as a relates to shortness of breath or other symptoms. 5. Continue with sling until follow-up with orthopedics. 6. Patient to follow-up with urology for urinary retention started on Flomax López catheter placed. DISCHARGE INSTRUCTIONS TEMPLATE: Call immediately or go to emergency room for any change in sensorium or fluctuations in consciousness. Use narcotics sparingly. Follow-up with orthopedics for any persistent upper extremity discomfort. Call for any shortness of breath or return to the emergency room for any worrisome symptoms as a relates to respiratory function. No heavy lifting, pushing, or pulling. Stairs are allowed, no stren uous/exertional activities. 5-10lbs weight carrying limit (i.e. gallon of milk) If provided, abdominal binder while out of bed and while ambulating. Call or proceed to clinic/ER for fevers, severe pain, nausea, vomiting, inability to pass flatus/stool, bleeding, wound redness/discharge, weakness, excessively loose stool/diarrhea, or for any other reasonably worrisome symptom or concern. Soft MECHNICAL diet, no raw vegetables, avoid high fiber foods. Colace 100mg by mouth twice to three times daily while taking narcotic pain medication. If no bowel movement in 24-48hr, may take 17g Miralax in 8oz water twice daily until bowel movement. May shower, no submersive bathing. No driving while taking narcotic pain medications. Follow up with primary care provider and/or medical subspecialist following discharge as well. - TIME SPENT Time Spent in Discharge (Minutes): 60"
[2021-02-23 16:20] VITALS: BP 136/57
== END 2021-02-23 16:58 | disposition home health service (06) | DRG 964 ==
LOC: EDUNIT# → ED 12:01 → MS2 15:06
PROVIDERS: ADMIT Surgery; ATTEND Surgery
DX: S37.062A Major laceration of left kidney, initial encounter (principal); S32.302A Unspecified fracture of left ilium, initial encounter for closed fracture; S22.32XA Fracture of one rib, left side, initial encounter for closed fracture; R33.9 Retention of urine, unspecified; T14.8XXA Other injury of unspecified body region, initial encounter; W17.89XA Other fall from one level to another, initial encounter; M25.532 Pain in left wrist; F10.129 Alcohol abuse with intoxication, unspecified; Y90.9 Presence of alcohol in blood, level not specified; Z20.822 Contact with and (suspected) exposure to COVID-19
CPT/HCPCS: 0202U; 36415; 70450; 71260; 72125; 73110; 74177; 80053; 80306; 80307; 80320; 80329; 81001; 83690; 84443; 85014; 85018; 85025; 85610; 96361; 96374; 96375; 97110; 97116; 97163; 97167; 97530; 97535; 99284; 99285; A9270; J0131; J1170; J2060; J3411; Q9967; 81003; 87086

== ENCOUNTER 2021-02-27 15:00 | Outpatient (CLI) | payer BC ==
[2021-02-27] MEDS ORDERED: IOPAMIDOL-300 50 ML VIAL ONE (15:08)
[2021-02-27] MEDS ORDERED: IOVERSOL 320 100 ML VIAL IVP ONE ×2 (15:08→16:34)
[2021-02-27] MEDS ORDERED: IOPAMIDOL-300 50 ML VIAL PO ONE (16:33)
--- NOTE | 2021-02-27 16:46 | CT Report ---
PROCEDURE: Abdomen/Pelvis W INDICATIONS: LATE EFFFECT OF PELVIC FX, HEMATURIA CONTRAST: IV CONTRAST: Optiray 320 ml: 100 PO CONTRAST: Isovue 300 ml50 TECHNIQUE: After the administration of nonionic contrast, 5 mm thick sections acquired from the diaphragms to th e symphysis. 5 mm thick coronal and sagittal reformats were acquired. For radiation dose reduction, the following was used: automated exposure control, adjustment of mA and/or kV according to patient size. COMPARISON: 02/19/2021 and 02/20/2021 CT abdomen/pelvis. FINDINGS: Image quality: Excellent. ABDOMEN: Lung bases: Lung bases are clear. Heart size is normal. Solid organs: Liver and spleen are normal in size and enhancement. Gallbladder appears normal Bili dennis system is non dilated. Pancreas enhances normally. No adrenal nodules. Kidneys demonstrate nor mal size and enhancement, without hydronephrosis. A previously identified left posterior intracapsul ar crescentic peripelvic hematoma is again seen, having evolved and not enlarged in size, currently m easuring up to 3.7 cm transverse, and only 6 mm in thickness at the maximal area of hematoma posterio rly this covers only a short craniocaudad dimension and is involuting. No posttraumatic renal arteria l pseudoaneurysm or fracture is suspected. Peritoneum and bowel: Bowel loops demonstrate normal wall thickness and caliber. No free fluid or a ir. Nodes and vessels: No retroperitoneal or mesenteric adenopathy by size criteria. Aorta and inferior vena cava are normal in size. Miscellaneous: No ventral hernias. PELVIS: Genitourinary: Bladder wall thickness is normal. A López catheter drains the bladder lumen. Miscellaneous: No inguinal hernias or adenopathy. Bones: No suspicious bony lesions. No vertebral body compression fractures. A previously identifie d left iliac wing acute or subacute fracture is again noted, remaining in near-anatomic alignment.. IMPRESSION: Resolving small crescentic left posterior perinephric hematoma, intracapsular, is identi fied. No additional complication of trauma to the kidney is present. No sign of hydronephrosis bilate rally. Bladder is emptied by a López catheter in place. The left iliac wing fracture remains in near anatomic alignment for healing. Reviewed by: Raghav Rodriguez MD on 02/27/2021 4:44 PM PDT Approved by: Raghav Rodriguez MD on 02/27/2021 4:44 PM PDT Station ID: [id number]
== END 2021-02-27 15:01 | disposition home or self-care (01) ==
LOC: DI 15:00
PROVIDERS: ATTEND Family Medicine
DX: S37.02 Major contusion of kidney (principal); S32.302D Unspecified fracture of left ilium, subsequent encounter for fracture with routine healing
CPT/HCPCS: 74177; Q9967